=== PATIENT | male | born 1960 | race Caucasian/White ===

== ENCOUNTER → 2017-02-12 | Outpatient (CLI) | payer BC ==
[~2017-02-12] MED LIST: ALPR0.25 PO; ASPI-630 PO; CRESTOR20 MG PO; HYDR-2758 PO; MELA3TAB2 PO; MULT1TAB52 PO; NAPR500T PO; OMEP20TA63 PO; PRED2.5T PO; UBID30CA9 PO
== END | disposition home or self-care (01) ==
LOC: SURGPAT 13:51
PROVIDERS: ATTEND Neurological Surgery
DX: M54.16 Radiculopathy, lumbar region (principal); M51.36 Other intervertebral disc degeneration, lumbar region
CPT/HCPCS: 87641

== ENCOUNTER 2017-02-23 07:04 | Day surgery (SDC) | payer BC ==
[~2017-02-23] VITALS: Ht 157.5 cm; Wt 68.0 kg
[~2017-02-23 07:04] MED LIST changes: +BACITRACIN 50,000 UNIT in IV NORMAL SALINE 1000ML BAG 1,000 ML IRR ONE
[2017-02-23] MEDS ORDERED: GELATIN SPONGE SIZE 100. ONE (07:18)
[2017-02-23] MEDS ORDERED: KETOROLAC 60 MG/2 ML INJ FOR OR. ONE (07:19)
[2017-02-23] MEDS ORDERED: THROMBIN TOPICAL 20,000 UNIT SPRAY.SYRN KIT TP ONE (07:19)
[2017-02-23] MEDS ORDERED: IV RINGERS,LACTATED 1000ML 1,000 ML IV SCH (07:22)
[2017-02-23] MEDS ORDERED: fentaNYL PF VIAL 100 MCG/2 ML VIAL IV PRN (07:30)
[2017-02-23] MEDS ORDERED: LIDOCAINE 1% 1 ML SYRINGE. ID PRN (07:30)
[2017-02-23] MEDS ORDERED: MIDAZOLAM HCL/PF 2 MG/2 ML VIAL. IV PRN (07:30)
[2017-02-23] MEDS ORDERED: REMIFENTANIL 2 MG VIAL. IV ONE (08:18)
[2017-02-23] MEDS ORDERED: SUCCINYLCHOLINE 200 MG/10 ML VIAL. ONE (08:18)
[2017-02-23] MEDS ORDERED: DESFLURANE > 120 MINUTES IH ONE (08:19)
[2017-02-23] MEDS ORDERED: GLYCOPYRROLATE 1 MG/5 ML VIAL. ONE (08:19)
[2017-02-23] MEDS ORDERED: PROPOFOL 20 ML IV ONE (08:19)
[2017-02-23] MEDS ORDERED: LIDOCAINE 2% PF Vial for OR 5 ML VIAL. ONE ×2 (08:19→17:03)
[2017-02-23] MEDS ORDERED: ONDANSETRON PF 4 MG/2 ML VIAL. ONE (08:19)
[2017-02-23] MEDS ORDERED: PROPOFOL 50 ML IV ONE ×2 (08:19→10:07)
[2017-02-23] MEDS ORDERED: DEXAMETHASONE SOD PHOS 20 MG/5 ML VIAL. ONE (08:19)
[2017-02-23] MEDS ORDERED: MIDAZOLAM HCL/PF 2 MG/2 ML VIAL. ONE (08:19)
[2017-02-23] MEDS ORDERED: PHENYLEPHRINE 10 MG/ML VIAL. ONE (08:19)
[2017-02-23] MEDS ORDERED: 0.9 % SODIUM CHLORIDE 50 ML VIAL. IJ ONE (08:20)
[2017-02-23] MEDS ORDERED: PHENYLEPHRINE in 0.9% NACL PF 1 MG/10 ML DISP.SYRIN. IV ONE (08:20)
[2017-02-23] MEDS ORDERED: HYDROCORTISONE SOD SUCC/PF 100 MG/2 ML VIAL. ONE (08:32)
[2017-02-23] MEDS ORDERED: BUPIVAC MPF-EPI 0.5%-1:200000 30 ML VIAL. INJ ONE (09:30)
[2017-02-23] MEDS ORDERED: fentaNYL PF VIAL 100 MCG/2 ML VIAL ONE ×2 (09:41→11:15)
[2017-02-23] MEDS ORDERED: KETOROLAC 30 MG/ML INJ FOR OR. INJ ONE (09:45)
--- NOTE | 2017-02-23 10:41 | DISCH ---
DISCHARGE INSTRUCTIONS Condition on Discharge Condition on Discharge: Stable Activity After Discharge Activity Instructions for Disc: Activity as tolerated, Avoid exertion Other activity instructions: no driving for a week Bathing Instructions: Shower-keep dressing dry Lifting Instructions after Dis: No heavy lifting, No pulling or pushing, Do not lift >10 pounds Diet after Discharge Additional Diet Restrictions: resume home diet Wound Incision Care Wound/Incision Care: Ice to area for comfort Other wound/incision instructi: may remove dressing in 48 hrs if dry then may shower- no soaking Contacting the after DC Call your doctor for: Concerns you may have Follow-Up Follow up with: Dr. Shoemaker's nurse [phone] 2 weeks KERON SHOEMAKER MD Feb 23, 2017 10:41
[2017-02-23] MEDS ORDERED: METH-38 PO (10:44)
[2017-02-23] MEDS ORDERED: DOCU-109 PO (10:44)
[2017-02-23] MEDS ORDERED: HYDR-2762 PO (10:44)
[2017-02-23] MEDS: fentaNYL PF VIAL 100 MCG/2 ML VIAL IV PRN ×2 (11:20→11:40)
[2017-02-23] MEDS ORDERED: HYDROcodone/APAP 7.5/325MG 1 TAB TABLET PO ONE (11:30)
[2017-02-23 12:20] VITALS: BP 124/72
--- NOTE | 2017-02-23 12:24 | OP ---
DATE OF SURGERY: 02/23/2017 PREOPERATIVE DIAGNOSES: Herniated nucleus pulposus L4-L5 left with severe left lumbar radiculopathy. POSTOPERATIVE DIAGNOSIS: Herniated nucleus pulposus L4-L5 left with severe left lumbar radiculopathy. OPERATION PERFORMED: Hemilaminotomy and microdiscectomy, left L4-L5. The operation was done with EMG monitoring, fluoroscopy, microscopic dissection. SURGEON: Graham Shoemaker M.D. CROP SETTING OUT MACHINE OPERATOR: HARITHA Yang, assisted with the surgery. She assisted with the microdiskectomy as well as the closure. OPERATIVE INDICATIONS: The patient is a pleasant 56-year-old man who developed intractable back and left leg pain, which failed conservative measures. On imaging studies, there was a herniated disc at L4-L5 with an inferior fragment compressing the left L5 root and I recommended lumbar microsurgery. I spoke with him about the surgery, the risks, the technique and the expected postoperative course and he wished for me to go ahead. DESCRIPTION OF PROCEDURE: Following general endotracheal anesthesia, this patient was positioned prone on the Samir table with lumbar regions prepped and draped in standard fashion. LOUANN hose and AV impulse boots were applied for DVT prophylaxis. The microscope was draped. Fluoroscopy was draped and brought into field. Monitoring was established. Ancef 2 grams given less than 1 hour prior to initiation of surgery. Using fluoroscopic guidance, a small incision was made over the L4-L5 interspace. I dissected down to skin and subcutaneous tissue and reflected the paraspinal muscles laterally and placed a micro retractor. I then brought in the high speed air drill and the microscope and the remainder of surgery done with the microscope using microscopic technique. I burred down a hemilaminotomy and then opened the ligamentum flavum and exposed the dura and the exiting root. I carried my dissection from above the disc and slightly farther inferiorly and exposed the root performing a partial foraminotomy. I gently retracted the root medially, was lifted by a large subligamentous disc and I incised the annulus and ligament and then began to tease back multiple disc fragments. As I worked, I was able to get a fair decompression, retracted the root medially, but inferiorly, there appeared to be an epidural disc fragment compressing the dura and the medial aspect of the L5 root. I gently teased back and grasped the edge of this disc material with a micropituitary and pulled it superolaterally and gently removed this disc and as I worked, the entire region became much better decompressed. I removed a few other small subligamentous disc fragments. I irrigated copiously with antibiotic solution. I explored carefully and assured myself that there were no retained fragments and the root was quite free. I irrigated, closed the wound in layers with absorbable suture, skin was closed with a 4-0 subcuticular stitch. Hemostasis was perfect. I felt the surgery went very well. GRAHAM SHOEMAKER MD DR: IWONA/alina JOB#: [id number] / [id number] [place]
--- NOTE | 2017-02-26 06:37 | PREOP HP ---
DATE OF SERVICE: 02/23/2017 Russel Dubois dictating for Dr. Graham Shoemaker. DATE OF SURGERY: 02/23/2017 HISTORY OF PRESENT ILLNESS: The patient is a pleasant 56-year-old man who is having difficulty with low back pain and pain, which can radiate into his left leg. The pain tends to radiate into his left buttock and posterior thigh. He notes pain in the lateral leg and his left great toe. This problem started on 05/10/2016 when he ____ from a seated position. He rates his pain currently as a 4/10. He says that lifting, pushing or pulling can increase his pain. He says at night the pain can become very severe and he cannot sleep. He is taking [place] and tizanidine, which have been helping him. He has epidural steroid injections, which helped temporarily, but now that is wearing off, the pain is becoming severe. PAST MEDICAL HISTORY: Glasses/contacts, indigestion/heartburn, insomnia/sleep difficulty. PAST SURGICAL HISTORY: Arthroscopy in 1994 and 2014. FAMILY HISTORY: Noncontributory. SOCIAL HISTORY: Employed as a clinical nurse educator. . Exercises daily. Denies tobacco use. Drinks alcohol 1-2 times per week. Drinks coffee, tea and soda. ALLERGIES: No known drug allergies. CURRENT MEDICATIONS: Penicillin, Crestor, alprazolam, tizanidine, multivitamin, CoQ10, naproxen, aspirin and [place]. REVIEW OF SYSTEMS: A 12-point review of systems was obtained and is noncontributory except for that mentioned above. PHYSICAL EXAMINATION: NEUROSURGERY EXAMINATION: GENERAL APPEARANCE: Alert, pleasant, in no acute distress. HEAD: Normocephalic and atraumatic. SKIN: Warm and dry. MUSCULOSKELETAL: Lumbar paraspinal muscle bulk is normal, restricted range of motion of lumbar spine, apcq-fo-mheweysy tenderness of lower lumbar spine with palpation, normal range of motion of the lower extremities bilaterally. EXTREMITIES: No clubbing, cyanosis, or edema. NEUROLOGIC: Alert and oriented x 3, normal recent and remote memory, strength 5/5 in bilateral lower extremities except for 4+/5 on left EHL, sensory was intact to light touch in bilateral lower extremities except for decrease in the dorsum of his left foot. Reflexes were present and symmetric in the lower extremities bilaterally, positive straight leg raising on the left, negative straight leg raising on the right, normal gait. IMAGING: Reviewed. I reviewed a lumbar MRI scan. On that study, the principal abnormalities are at L4-L5 where there is left paracentral disk protrusion, which is extruded into the left lateral recess and inferiorly compressing the left L5 nerve root. ASSESSMENT: Intervertebral disk disorders with radiculopathy, lumbar region. PLAN: The patient has had difficulty with left lumbar radiculopathy for the last 8 months. He has had epidural steroid injections, which have not given him lasting relief. His pain has become very severe. There is a large herniated disk with inferior fragment compressing at left L5 root. My recommendation is that he undergo lumbar microsurgery at this level. I spoke with him about this in detail including the technique, risk and expected postoperative course. He would like to go ahead. We will make the arrangements. GRAHAM SHOEMAKER MD DR: IWONA/alina JOB#: [id number] / [id number]
--- NOTE | 2017-02-27 16:14 | PATHOLOGY ---
PATHOLOGY REPORT * * * * * * * * FINAL DIAGNOSIS: Segments of fibrocartilaginous, fibroadipose, and skeletal muscle tissue and bone, lumbar disc and decompression: - Degenerative changes of fibrocartilaginous tissue. COMMENT: There is no evidence of an acute inflammatory process or malignancy. (JPM:db; 02/27/2017) REPORT ELECTRONICALLY SIGNED BY: Martin Marin M.D. DATE/TIME: 02/27/2017 16:13 * * * * * * * * GROSS PATHOLOGY: Received in formalin labeled "Ruchi Schneider, lumbar disc and decompression," are multiple segments of mehta-white, rubbery and gritty tissue measuring 3.5 x 2.5 x 0.5 cm in aggregate dimensions. Fragments of bone and cartilage are identified. The tissue is submitted representatively in cassette A1 after fixation and decalcification. (JPM-JWP; 02/23/2017) INITIAL CPT CODE(S): A; 39563, 24128 Professional services [place] [address] Technical services performed by [facility] at [address] [place] [address] [address], [place] [address]. SPECIMEN(S) RECEIVED: A.Lumbar disc and decompression CLINICAL HISTORY: Lumbar herniated disc with radiculopathy PATIENT: RUCHI SCHNEIDER /AGE: 712/31/1960 (Age: 56) PATIENT #: [id number] ALT CASE #: SPECIMEN COLLECTION DATE: 02/23/2017 SPECIMEN RECEIVED DATE: 02/23/2017 [facility] - [address] [place] [address] - PHONE: [phone] * * * END OF REPORT * * *
== END 2017-02-23 12:30 | disposition home or self-care (01) ==
LOC: SURG 07:04 → EDUNIT# 08:30 → SURG 12:30
PROVIDERS: ATTEND Neurological Surgery
DX: M51.16 Intervertebral disc disorders with radiculopathy, lumbar region (principal); E78.00 Pure hypercholesterolemia, unspecified; K21.9 Gastro-esophageal reflux disease without esophagitis; M17.11 Unilateral primary osteoarthritis, right knee; Z87.39 Personal history of other diseases of the musculoskeletal system and connective tissue; Z86.69 Personal history of other diseases of the nervous system and sense organs; Z87.891 Personal history of nicotine dependence; Z86.39 Personal history of other endocrine, nutritional and metabolic disease
CPT/HCPCS: 63030; 76000; 97161; J0330; J0690; J1100; J1720; J1885; J2250; J2405; J2704; J3010; J3490; J7030; J2370; J2001